=== PATIENT | female | born 2000 | race Caucasian/White ===

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

== ENCOUNTER 2019-01-14 18:58 | Outpatient (CLI) | payer OTHER ==
--- NOTE | 2019-01-22 18:54 | P.MSEPDOC ---
Presenting Problems - Arrival Data Date of Arrival on Unit: 01/14/19 Time of Arrival on Unit: 18:58 Mode of Transport: Ambulatory Disposition - Disposition Discharge Date: 01/14/19 Discharge Time: 20:00 I agree with the RN Medical Screening Exam: No Risk & Benefit of care provided described in d/c instruction: No Diagnosis: None (Insufficient information provided to complete MSE.)
== END 2019-01-14 20:00 | disposition home or self-care (01) ==
LOC: FBPOP 18:58
PROVIDERS: ATTEND Obstetrics & Gynecology
DX: N93.0 Postcoital and contact bleeding (principal); Z3A.37 37 weeks gestation of pregnancy
CPT/HCPCS: 59025; G0463; 99213

== ENCOUNTER 2019-01-25 10:55 | Outpatient (CLI) | payer OTHER ==
[2019-01-25 12:48] VITALS: BP 120/74; PULSE 106; RESP 16; TEMP 93.9
--- NOTE | 2019-01-26 07:42 | P.MSEPDOC ---
Presenting Problems - Arrival Data Date of Arrival on Unit: 01/25/19 Time of Arrival on Unit: 10:56 Mode of Transport: Ambulatory - Complaint OB-Reason for Admission/Chief Complaint: Possible Onset of Labor Comment: cramping and contractions since 7am this morning Medical History - Information : 1 Para: 0 Term: 0 : 0 Abortions: Spontaneous or Elective: 0 Number of Living Children: 0 - Gestational Age Gestational Age by NONI (wks/days): 39 Weeks and 2 Days Review of Systems - Review of Systems Constitutional: No problems Breast: No problems ENT: No problems Cardiovascular: No problems Respiratory: No problems Gastrointestinal: No problems Genitourinary: No problems Musculoskeletal: No problems Neurological: No problems Skin: No problems Vital Signs - Temperature Temperature: 93.9 F - Pulse Pulse Oximetery Pulse Rate: 106 Pulse Assessment Method: Pulse Oximetry - Respirations Respiratory Rate: 16 Oxygen Delivery Method: Room Air - Blood Pressure Right Arm Blood Pressure: 120/74 Blood Pressure Mean: 89 Blood Pressure Source: Automatic Cuff Medical Screen Scoring (Pre) - Cervical Exam Dilation: 1-3 cm = 1 Effacement: More than 50% = 2 Membranes: Intact - Uterine Contractions Frequency: N/A - Maternal Vital Signs Maternal Temperature: N/A Maternal Blood Pressure: N/A Signs of Preeclampsia: N/A Maternal Respirations: N/A - Maternal Trauma Maternal Trauma: N/A - Assessment - Baby A Baseline FHR: 120 Heart Rate - NICHD Category: Category I (Normal) = 0 NST: Reactive - Total Score - Baby A Total Score - Baby A: 3 - Total Score - Baby B Total Score - Baby B: 3 - Total Score - Baby C Total Score - Baby C: 3 - Level of Risk - Baby A Level of Risk - Baby A: Low (0-5) - Level of Risk - Baby B Level of Risk - Baby B: Low (0-5) - Level of Risk - Baby C Level of Risk - Baby C: Low (0-5) Physician Notification (Pre) - Physician Notified Physician Notified Date: 01/25/19 Physician Notified Time: 12:25 Physician/Practitioner Notifed:: joan Spoke With: joan New Order Received: Yes - Notification Comment Comment: reported visit, fht, contractions, no cervical change in one hour, Disposition - Disposition OB Disposition: Discharge to home Discharge Date: 01/25/19 Discharge Time: 12:35 I agree with the RN Medical Screening Exam: Yes Risk & Benefit of care provided described in d/c instruction: Yes Diagnosis: FALSE LABOR AT OR AFTER 37 COMPLETED WEEKS OF GESTATION
== END 2019-01-25 12:35 | disposition home or self-care (01) ==
LOC: FBPOP 10:55
PROVIDERS: ATTEND Obstetrics & Gynecology
DX: O47.1 False labor at or after 37 completed weeks of gestation (principal); Z3A.39 39 weeks gestation of pregnancy
CPT/HCPCS: 59025; 84112; G0463; 99213

== ENCOUNTER 2019-01-25 19:12 | Inpatient (IN) | payer OTHER ==
[2019-01-25] MEDS ORDERED: LIDOCAINE 0.5% (PF) 5 MG/ML (50 ML SDV) SQ PRN (21:02)
[2019-01-25] MEDS ORDERED: CARBOPROST TROMETHAMINE 250 MCG/ML 1 ML AMP IM PRN (21:02)
[2019-01-25] MEDS ORDERED: OXYTOCIN 10 UNIT/ML 1 ML VIAL IM PRN (21:02)
[2019-01-25] MEDS ORDERED: METHYLERGONOVINE 0.2 MG/ML 1 ML AMP IM PRN (21:02)
[2019-01-25] MEDS ORDERED: TERBUTALINE 1 MG/ML VIAL SQ PRN (21:02)
[2019-01-25] MEDS ORDERED: LACTATED RINGERS 1,000 ML IV SCH (21:15)
[2019-01-25 21:22] LABS: Basophils # (A) 0.1 k/uL (0-0.2); Basophils % (A) 0 %; Eosinophils # (A) 0.1 k/uL (0-0.7); Eosinophils % (A) 0 %; HCT 31.5 % (34.0-46.0); HGB 10.6 gm/dL (11.4-16.0); Lymphocytes # (A) 1.2 k/uL (1.0-4.8); Lymphocytes % (A) 7 %; MCH 25.7 pg (25.0-35.0); MCHC 33.5 g/dL (31.0-37.0); MCV 76.5 fL (80.0-100.0); Mean Platelet Volume 8.6; Monocytes # (A) 0.8 k/uL (0-1.0); Monocytes % (A) 5 %; Neutrophils # (A) 14.8 k/uL (1.3-7.7); Neutrophils % (A) 87 %; Platelet Count 241 k/uL (150-450); Poikilocytosis Slight; RBC 4.12 m/uL (3.80-5.40); WBC 17.1 k/uL (4.0-11.0)
[2019-01-25] MEDS: LACTATED RINGERS 1,000 ML IV SCH (21:30)
--- NOTE | 2019-01-25 21:31 | P.HPOB ---
History of Present Illness H&P Date: 01/25/19 Chief Complaint: Contractions This patient is a 19-year-old 1 para 0 female estimated date of confinement 01/30/2019 estimated gestational age 39-2/7 weeks who presented to labor and delivery initially this morning with complaint of contractions is 1 cm dilated returned later this evening is found to be 3 cm dilated and very uncomfortable in early active labor. Patient also had spontaneous rupture membranes here in triage for clear fluid. Patient's care is per Dr. Russo. appears to be uncomplicated. Review of Systems Genitourinary: Reports Menstruation: Reports amenorrhea Past Medical History Past Medical History: No Reported History History of Any Multi-Drug Resistant Organisms: None Reported Past Surgical History: No Surgical Hx Reported Past Anesthesia/Blood Transfusion Reactions: No Reported Reaction Past Psychological History: No Psychological Hx Reported Smoking Status: Never smoker Past Alcohol Use History: None Reported Past Drug Use History: None Reported Medications and Allergies Home Medications Medication Instructions Recorded Confirmed Type No Known Home Medications 01/25/19 01/25/19 History Allergies Allergy/AdvReac Type Severity Reaction Status Date / Time No Known Allergies Allergy Verified 01/25/19 11:01 Exam Vital Signs Temp Pulse Resp BP 01/25/19 19:37 97.4 F L 125 H 18 126/66 Intake and Output 01/25/19 01/25/19 01/25/19 06:59 14:59 22:59 Other: Weight 91.172 kg - OBG Physical Exam Abdomen: bowel sounds normal, no diffuse tenderness, no bruit present, no guarding noted, no hepatomegaly, no splenomegaly, no mass Vulva: both: normal Vagina: normal moisture, no discharge Cervix: no lesion (Cervix is 4-5 cm dilated completely effaced -2 station. Gross rupture membranes for clear fluid), no discharge Results blood work appears normal. Group B strep was negative. Patient had ultrasound done at 33 weeks which showed estimated weight of 5 lbs. 11 oz. which is 81st percentile. Result Diagrams: 01/25/19 20:50 Abnormal Lab Results - Last 24 Hours (Table) 01/25/19 Range/Units 20:50 WBC 17.1 H (4.0-11.0) k/uL Hgb 10.6 L (11.4-16.0) gm/dL Hct 31.5 L (34.0-46.0) % MCV 76.5 L (80.0-100.0) fL Neutrophils # 14.8 H (1.3-7.7) k/uL Assessment and Plan Assessment: This is a 19-year-old 1 para 0 female 20-0/7 weeks gestation with active labor. Plan is anticipate vaginal delivery. (1) 39 weeks gestation of Current Visit: Yes Status: Acute Code(s): Z3A.39 - 39 WEEKS GESTATION OF SNOMED Code(s): 59459046 (2) Normal labor Current Visit: Yes Status: Acute Code(s): O80 - ENCOUNTER FOR FULL-TERM UNCOMPLICATED DELIVERY; Z37.9 - OUTCOME OF DELIVERY, UNSPECIFIED SNOMED Code(s): 69996281
[2019-01-25] MEDS ORDERED: SODIUM CHLORIDE 0.9% 100 ML BAG ONE (21:40)
[2019-01-25] MEDS ORDERED: fentaNYL (PF) 50 MCG/ML 5 ML AMP ONE (21:40)
[2019-01-25] MEDS ORDERED: ROPIVACAINE 5MG/ML 20ML VIAL ONE (21:40)
[2019-01-26 00:08] VITALS: BMI 31.4
[2019-01-26] MEDS: LACTATED RINGERS 1,000 ML IV SCH (00:56)
[2019-01-26] MEDS ORDERED: diphenhydrAMINE 25 MG CAP PO PRN (03:01)
[2019-01-26] MEDS ORDERED: ACETAMINOPHEN TAB 325 MG TAB PO PRN (03:01)
[2019-01-26] MEDS ORDERED: ZOLPIDEM 5 MG TAB PO PRN (03:01)
[2019-01-26] MEDS ORDERED: HYDROCORTISONE 2.5% RECTAL CREAM 30 GM TUBE RECTAL PRN (03:01)
[2019-01-26] MEDS ORDERED: BENZOCAINE/MENTHOL SPRAY 1 GM/SPRAY AEROSOL TOPICAL PRN (03:01)
[2019-01-26] MEDS ORDERED: WITCH HAZEL 1 EACH MED..PAD TOPICAL PRN (03:01)
[2019-01-26] MEDS ORDERED: LANOLIN CREAM 5 GM TUBE TOPICAL PRN (03:01)
[2019-01-26] MEDS ORDERED: diphenhydrAMINE 50 MG/ML 1 ML VIAL IVP PRN (03:01)
[2019-01-26] MEDS ORDERED: BISACODYL 10 MG SUPP RECTAL PRN (03:01)
[2019-01-26] MEDS ORDERED: SIMETHICONE 80 MG CHEWABLE PO PRN (03:01)
[2019-01-26] MEDS ORDERED: AMPICILLIN 2,000 MG in SODIUM CHLORIDE 0.9% 100 ML IVPB STA (03:02)
--- NOTE | 2019-01-26 03:07 | P.PROBDLV ---
Vaginal Delivery Note - . Vaginal Delivery Note: Normal spontaneous vaginal delivery viable female Apgars 8 and 9 delivery time is 0237 hours. Please see dictated H&P for intimate details of this patient's admission. Brief summary this is a pleasant 19-year-old 1 para 0 female 39-3/7 weeks who is admitted to labor and delivery with complaints of regular painful contractions. Patient's cervix is 3 cm dilated and thought to be in active labor after checking her approximately 1 hour later. Patient does also then have spontaneous rupture for clear fluid at 2042 hrs. heart tones are category 1. Labor progresses normally and she does get an epidural for pain control. Patient gets to complete pushes for approximately 30 minutes. She does develop some mild tachycardia to 170s however again heart tones are category 1 and she pushes the head over the intact perineum. Mouth and nares are bulb suctioned. There is no evidence of a nuchal cord. position straight occiput anterior presentation. After delivery of infant's head with gentle downward traction we have delivery the anterior and posterior shoulder and rest this infant's body. The vigorous viable female Apgars are 8 and 9 delivery time is 0237 hours. Infant has spontaneous respirations and good cry and grossly appears normal. Patient does feel warm to me at that time instructed nurse check her temperature to 100.6. This is the first temperature she's had. The infant is late on the mother's abdomen. After the cord is done pulsating is doubly clamped and then cut. The placenta is then spontaneously delivered intact. Due to the temperature I did send this to pathology. Inspection of the perineum shows a second-degree midline laceration which was repaired with 3-0 Vicryl in the usual fashion excellent reapproximation is noted. Estimated blood loss is 100 mL. There are no complications. The patient will be given 1 dose of IV antibiotics and observed due to the temperature and certainly the phthalic acid purifier's be alerted to the baby's temperature as well. All counts are correct 3. There are no complications. and mother stable delivery room.
[2019-01-26] MEDS ORDERED: OXYTOCIN 20 UNITS/1000 ML NS 1,000 ML IV SCH (03:15)
[2019-01-26] MEDS: IBUPROFEN 600 MG TAB PO PRN ×3 (05:36→18:34)
--- NOTE | 2019-01-26 07:19 | P.PN ---
Progress Note - Text Progress Note Date: 01/26/19 Patient is resting without new complaints this morning however continues to have a low-grade temperature. Patient was 100.6 just after delivery and repeat this morning is 100.1. I initially gave her 1 dose of ampicillin however due to the persistence of the temperature I'm going to switch over to some scheduled Ancef. I ordered repeat CBC for tomorrow morning. If the patient were to develop significant temperature elevations or other signs or symptoms of endometritis we would add an aminoglycoside for gram-negative coverage.
--- NOTE | 2019-01-26 07:46 | P.MSEPDOC ---
Presenting Problems - Arrival Data Date of Arrival on Unit: 01/25/19 Time of Arrival on Unit: 20:40 Mode of Transport: Ambulatory - Complaint OB-Reason for Admission/Chief Complaint: Possible Onset of Labor Comment: contraction became longer and stronger after being sent home from triage earlier today Medical History - Information : 3 Para: 2 Term: 2 : 0 Abortions: Spontaneous or Elective: 0 Number of Living Children: 2 - Gestational Age Gestational Age by NONI (wks/days): 39 Weeks and 3 Days Review of Systems - Review of Systems Constitutional: No problems Breast: No problems ENT: No problems Cardiovascular: No problems Respiratory: No problems Gastrointestinal: No problems Genitourinary: No problems Musculoskeletal: No problems Neurological: No problems Skin: No problems Vital Signs - Temperature Temperature: 100.1 F - Pulse Right Pulse Rate: 134 Pulse Assessment Method: Automatic Cuff - Respirations Respiratory Rate: 16 Oxygen Delivery Method: Room Air - Blood Pressure Right Arm Blood Pressure: 112/53 Blood Pressure Mean: 72 Blood Pressure Source: Automatic Cuff Medical Screen Scoring (Pre) - Cervical Exam Dilation: 1-3 cm = 1 Membranes: Intact - Uterine Contractions Duration: > 40 seconds = 2 Intensity: Contraction palpated strong = 1 - Maternal Vital Signs Maternal Temperature: N/A Maternal Blood Pressure: N/A Signs of Preeclampsia: N/A Maternal Respirations: N/A - Assessment - Baby A Baseline FHR: 145 Heart Rate - NICHD Category: Category I (Normal) = 0 NST: Reactive - Total Score - Baby A Total Score - Baby A: 4 - Total Score - Baby B Total Score - Baby B: 4 - Total Score - Baby C Total Score - Baby C: 4 - Level of Risk - Baby A Level of Risk - Baby A: Low (0-5) - Level of Risk - Baby B Level of Risk - Baby B: Low (0-5) - Level of Risk - Baby C Level of Risk - Baby C: Low (0-5) Medical Screen Scoring (Post) - Cervical Exam Dilation: 4-7 cm = 2 Effacement: More than 50% = 2 Membranes: Ruptured = 3 - Uterine Contractions Frequency: > or = 36 weeks =2 Duration: > 40 seconds = 2 Intensity: Contraction palpated strong = 1 - Total Score Total Score - Baby A: 12 Total Score - Baby B: 12 Total Score - Baby C: 12 - Post Treatment Level of Risk Post Treatment Level of Risk - Baby A: High (10+) Post Treatment Level of Risk - Baby B: High (10+) Post Treatment Level of Risk - Baby C: High (10+) Physician Notification (Post) - Physician Notified Physician Notified Date: 01/25/19 Physician Notified Time: 20:38 Spoke With: Adams Morton Order Received: Yes - Notification Comment Comment: admit for labor, ok for epidural Disposition - Disposition OB Disposition: Admit, LDRP Suite I agree with the RN Medical Screening Exam: Yes Risk & Benefit of care provided described in d/c instruction: Yes Diagnosis: ENCOUNTER FOR FULL-TERM UNCOMPLICATED DELIVERY
[2019-01-26] MEDS: SENNOSIDES-DOCUSATE SODIUM 1 EACH TAB PO SCH ×2 (08:01→20:47)
[2019-01-27] MEDS: IBUPROFEN 600 MG TAB PO PRN ×3 (00:01→23:17)
[2019-01-27] MEDS: SENNOSIDES-DOCUSATE SODIUM 1 EACH TAB PO SCH ×2 (08:00→20:49)
--- NOTE | 2019-01-27 08:23 | P.PNOBGVD ---
Subjective - Subjective Principal diagnosis: day 1 Interval history: Keyanna seen and evaluated day 1. She is involuting, voiding and tolerating her diet. She voices no planes. She did have fever late delivered process and baby is in special care nursery pending cultures. Otherwise she is stable. Vital signs are stable and afebrile. Heart regular, lungs clear, extremities without pain. Abdomen is soft uterus is firm and lochia is reported to be light. Assessment day 1. Plan continue current care. Patient reports: Reports appetite normal, Reports voiding normally, Reports pain well controlled, Reports ambulating normally : in NICU Objective - Latest Vital Signs Latest vital signs: Vital Signs Temp Pulse Resp BP 01/27/19 00:00 97.7 F 83 16 98/62 01/26/19 16:00 97.9 F 90 16 94/59 01/26/19 12:00 98.1 F 109 H 16 115/59 Intake and Output 01/26/19 01/27/19 01/27/19 22:59 06:59 14:59 Other: # Voids 1
[2019-01-27 08:31] LABS: Basophils # (A) 0.1 k/uL (0-0.2); Basophils % (A) 0 %; Eosinophils # (A) 0.3 k/uL (0-0.7); Eosinophils % (A) 2 %; HCT 26.8 % (34.0-46.0); Hypochromasia Slight; Lymphocytes # (A) 1.9 k/uL (1.0-4.8); Lymphocytes % (A) 12 %; MCH 25.3 pg (25.0-35.0); MCHC 32.3 g/dL (31.0-37.0); MCV 78.4 fL (80.0-100.0); Mean Platelet Volume 8.7; Monocytes # (A) 0.5 k/uL (0-1.0); Monocytes % (A) 3 %; Neutrophils # (A) 13.1 k/uL (1.3-7.7); Neutrophils % (A) 82 %; Platelet Count 202 k/uL (150-450); Poikilocytosis Slight; RBC 3.42 m/uL (3.80-5.40); RDW 15.1 % (11.5-15.5)
[2019-01-27 08:36] LABS: HGB 8.7 gm/dL (11.4-16.0)
[2019-01-28 00:35] VITALS: RESP 16
[2019-01-28] MEDS: SENNOSIDES-DOCUSATE SODIUM 1 EACH TAB PO SCH (08:40)
--- NOTE | 2019-01-28 09:13 | P.DS ---
Providers Date of admission: 01/25/19 20:53 Expected date of discharge: 01/28/19 Attending physician: Rosendo Russo Primary care physician: Rosendo Russo [facility] Course: Keyanna is doing very well this morning. She is involuting, voiding and tolerating her diet. She voices no complaints. Vital signs are stable and afebrile. Heart regular, lungs clear, extremities without pain. Abdomen soft uterus firm below the umbilicus and lochia is reported light. We'll plan discharged home today. Prescription for breast pump and Motrin provided. Discharge instructions were thoroughly reviewed and all questions are answered for her. She'll follow up with me in 6 weeks. She is stable for discharge this time. Patient Condition at Discharge: Good Plan - Discharge Summary New Discharge Prescriptions: New Ibuprofen [Motrin] 600 mg PO Q6HR PRN #30 tab PRN Reason: Pain Discharge Medication List Ibuprofen [Motrin] 600 mg PO Q6HR PRN #30 tab 01/28/19 [Rx] Follow up Appointment(s)/Referral(s): Rosendo Russo DO [Primary Care Provider] - 6 Weeks Activity/Diet/Wound Care/Special Instructions: No heavy lifting, limit stairs and driving, and pelvic rest. If any high temperatures, heavy bleeding, or severe pain call my office Discharge Disposition: HOME SELF-CARE
[2019-01-28 16:01] VITALS: BP 105/61; PULSE 87; TEMP 98.1
--- NOTE | 2019-01-31 06:53 | CDI ---
Documentation Clarification Form Date: 01/31/19 From: Gin Moss Phone: If questions call Ping Juárez @ [phone], Hours-8:30 am & 5 pm M- David Admit Date: 01/25/2019 8:53:00 PM Patient Name: Keyanna Marc Visit Number: [id number] Discharge Date: 01/28/2019 6:32:00 PM ATTENTION: The Clinical Documentation Specialists (CDI) and [facility] Coding Staff appreciate your assistance in clarifying documentation. Please respond to the clarification below the line at the bottom and electronically sign. The CDI & [facility] Coding staff will review the response and follow-up if needed. Please note: Queries are made part of the Legal Health Record. If you have any questions, please contact the author of this message via ITS. Dr. Wander Lamas The final diagnosis of the pathology report states: Mild to moderate chorionitis with focal chorioamnionitis Documentation states: temperature Patient history/risk factors: 19 yr old first at 39 weeks Clinical Indicators: temperature during delivery & following delivery 100.6/100.1 Treatment: IV Ampicillin switched to IV Kefzol In your professional opinion, do you agree with the pathology report specifying mild to moderate chorionitis with focal chorioamnionitis ? Yes No Other (please specify) Unable to determine YES MTDD
== END 2019-01-28 18:32 | disposition home or self-care (01) | DRG 805 ==
LOC: FBPOP 19:12 → 4FBP 20:53
PROVIDERS: ADMIT Obstetrics & Gynecology; ATTEND Obstetrics & Gynecology
PROC: 00HU33Z Insertion of Infusion Device into Spinal Canal, Percutaneous Approach (ICD-10-PCS; 2019-01-25)
PROC: 3E0R3BZ Introduction of Anesthetic Agent into Spinal Canal, Percutaneous Approach (ICD-10-PCS; 2019-01-25)
PROC: 10E0XZZ Delivery of Products of Conception, External Approach (ICD-10-PCS; principal; 2019-01-26)
PROC: 0KQM0ZZ Repair Perineum Muscle, Open Approach (ICD-10-PCS; 2019-01-26)
DX: O76 Abnormality in fetal heart rate and rhythm complicating labor and delivery (principal); O41.1230 Chorioamnionitis, third trimester, not applicable or unspecified; Z37.0 Single live birth; O86.4 Pyrexia of unknown origin following delivery; O70.1 Second degree perineal laceration during delivery; Z3A.39 39 weeks gestation of pregnancy
CPT/HCPCS: 59025; 85025; 86850; 86900; 86901; 88307; 99215

== ENCOUNTER 2023-06-25 11:20 | Outpatient (CLI) | payer OTHER ==
[2023-06-25] MEDS: LACTATED RINGERS 1,000 ML IV SCH (12:18)
[2023-06-25 12:28] LABS: Basophils % (A) 0 %; Eosinophils # (A) 0.2 k/uL (0-0.7); Eosinophils % (A) 2 %; HCT 35.2 % (34.0-46.0); HGB 11.7 gm/dL (11.4-16.0); Lymphocytes # (A) 1.6 k/uL (1.0-4.8); Lymphocytes % (A) 18 %; MCH 27.5 pg (25.0-35.0); MCHC 33.2 g/dL (31.0-37.0); MCV 82.7 fL (80.0-100.0); Monocytes # (A) 0.3 k/uL (0-1.0); Monocytes % (A) 4 %; Neutrophils % (A) 75 %; Platelet Count 216 k/uL (150-450); RBC 4.26 m/uL (3.80-5.40); RDW 13.6 % (11.5-15.5); WBC 9.4 k/uL (3.8-10.6)
[2023-06-25 12:31] LABS: Appearance,Urine Clear (Clear); Bacteria,Urine Rare /hpf; Bilirubin,Urine Negative (Negative); Blood,Urine Negative (Negative); Color,Urine Light Yellow; Glucose,Urine (UA) Negative (Negative); Ketones,Urine Negative (Negative); Leukocyte Esterase,Urine Moderate (Negative); Mucus,Urine Occasional /hpf; Nitrite,Urine Negative (Negative); PH, Urine 5.5 (5.0-8.0); Protein,Urine Negative (Negative); RBC,Urine 1 /hpf (0-5); Specific Gravity,Urine 1.016 (1.001-1.035); Squamous Epithelial Cell,Urine 3 /hpf (0-4); Urobilinogen,Urine <2.0 mg/dL (<2.0); WBC,Urine 3 /hpf (0-5)
[2023-06-25 12:41] LABS: African American GFR (CKD) >90 (>60 ml/min/1.73 sqM); Anion Gap 6 mmol/L; Blood Urea Nitrogen 4 mg/dL (7-17); Carbon Dioxide 19 mmol/L (22-30); Chloride 112 mmol/L (98-107); Glucose 77 mg/dL (74-99); Non-African American GFR(CKD) >90 (>60 ml/min/1.73 sqM); Potassium 4.4 mmol/L (3.5-5.1); Sodium 137 mmol/L (137-145)
[2023-06-25] MEDS: ONDANSETRON 4 MG/2 ML VIAL IM STA (12:42)
[2023-06-25 14:34] VITALS: BP 113/77; PULSE 98; RESP 16; TEMP 97.3
--- NOTE | 2023-06-27 17:35 | P.MSEPDOC ---
Presenting Problems - Arrival Data Date of Arrival on Unit: 06/25/23 Time of Arrival on Unit: 11:20 Mode of Transport: Ambulatory - Complaint OB-Reason for Admission/Chief Complaint: Possible Onset of Labor Comment: Patient of Dr Lamas, 39 2/7 weeks, presents to triage with complaints of diarrhea since midnight, vomiting x2 this morning at 0600. Patient states she feels cramping in her abdomin this morning sicne she has had diarrhea. Patient denies bleeding or loss of fluid. Medical History - Information : 2 Para: 1 Term: 1 : 0 Abortions: Spontaneous or Elective: 0 Number of Living Children: 1 - Gestational Age Gestational Age by NONI (wks/days): 39 Weeks and 2 Days Review of Systems - Review of Systems Constitutional: No problems Breast: No problems ENT: No problems Cardiovascular: No problems Respiratory: No problems Gastrointestinal: Diarrhea Genitourinary: No problems Musculoskeletal: No problems Neurological: No problems Skin: No problems Vital Signs - Temperature Temperature: 97.3 F Temperature Source: Axillary - Pulse Pulse Oximetery Pulse Rate: 98 Pulse Assessment Method: Automatic Cuff - Respirations Respiratory Rate: 16 Oxygen Delivery Method: Room Air O2 Sat by Pulse Oximetry: 99 - Blood Pressure Right Arm Blood Pressure: 113/77 Blood Pressure Mean: 89 Blood Pressure Source: Automatic Cuff Medical Screen Scoring - Cervical Exam Dilation (cm): 0 Station: -3 Membranes: Intact - Uterine Contractions Frequency From (mins): 1 Frequency To (mins): 7 Duration From (seconds): 70 Duration To (seconds): 110 Intensity: Mild Resting: Soft to palpation - Assessment - Baby A Baseline FHR: 130 Heart Rate - NICHD Category: Category I (Normal) NST: Reactive Physician Notification - Physician Notified Physician Notified Date: 06/25/23 Physician Notified Time: 11:47 Physician: Dr Farias New Order Received: Yes - Notification Comment Comment: Report of patient present, c/o diarrhea since midnight, vomiting x2 since 0600, patient states she is "just uncomfortable. Reviewed SVE, cat1 heartrate and irregular comtractions. Orders received for IV of LR, CBC, BMP, UA, covid and flu screen, zofran 4mg one time now IV. Maternal Triage Index - Maternal Triage Index Presenting for scheduled procedure w/no complaint: No - Stat/Priority 1 Stat Priority 1: No - Urgent/Priority 2 Urgent Priority 2: No - Prompt/Priority 3 Prompt Priority 3: No - Non-Urgent/Priority 4 Non-Urgent Priority 4: Yes Criteria Met for Priority 4: Report of patient present, c/o diarrhea since midnight, vomiting x2 since 0600, patient states she is "just uncomfortable"; mild contractions 1-7 minutes, Category 1 heartrate Disposition - Disposition OB Disposition: Discharge to home Discharge Date: 06/25/23 Discharge Time: 13:46 I agree with the RN Medical Screening Exam: Yes Case reviewed; plan agreed upon as documented in EMR&OBIX.: Yes Diagnosis: VOMITING, UNSPECIFIED
== END 2023-06-25 13:46 | disposition home or self-care (01) ==
LOC: FBPOP 11:20
PROVIDERS: ATTEND Obstetrics & Gynecology
DX: O21.9 Vomiting of pregnancy, unspecified (principal); O47.1 False labor at or after 37 completed weeks of gestation; O26.893 Other specified pregnancy related conditions, third trimester; R10.9 Unspecified abdominal pain; R19.7 Diarrhea, unspecified; Z3A.39 39 weeks gestation of pregnancy
CPT/HCPCS: 59025; 96361; 96374; 36415; 80048; 85025; 81001; 87636; G0463; J2405; 96360; 96367; 96375; 99213; 99214

== ENCOUNTER 2023-06-28 05:53 | Inpatient (IN) | payer OTHER ==
[2023-06-27 10:10] VITALS: BMI 34.0
--- NOTE | 2023-06-27 12:49 | P.HPOB ---
History of Present Illness H&P Date: 06/27/23 Chief Complaint: macrosomia This patient is a pleasant 23-year-old 2 para 1 female estimated date of confinement 06/30/2023 estimated gestational age 39-4/7 weeks who presents to labor and delivery for elective primary section secondary to suspected macrosomia. Patient's care has been uncomplicated with the exception of macrosomia. Patient was in triage approximately 3 days ago with dehydration which responded to IV hydration. Patient had an ultrasound about 2 weeks ago that showed estimated weight at approximately 9 pounds. I discussed options with the patient for delivery including all right section due to concern for shoulder dystocia or traumatic delivery and she has agreed to proceed. otherwise has been uncomplicated. Review of Systems Genitourinary: Reports Menstruation: Reports amenorrhea Past Medical History Past Medical History: No Reported History Additional Past Medical History / Comment(s): Previous term vaginal delivery History of Any Multi-Drug Resistant Organisms: None Reported Past Surgical History: No Surgical Hx Reported Past Anesthesia/Blood Transfusion Reactions: No Reported Reaction Past Psychological History: Depression Smoking Status: Former smoker Past Alcohol Use History: None Reported Past Drug Use History: None Reported - Past Family History Father Family Medical History: No Reported History Medications and Allergies Home Medications Medication Instructions Recorded Confirmed Type Vit No.179/Iron/Folic 1 tab PO DAILY 06/25/23 06/27/23 History [ Tablet] Acetaminophen [Tylenol Extra 500 mg PO Q6H PRN 06/27/23 06/27/23 History Strength] Allergies Allergy/AdvReac Type Severity Reaction Status Date / Time No Known Allergies Allergy Verified 06/27/23 09:56 Exam Intake and Output 06/26/23 06/27/23 06/27/23 22:59 06:59 14:59 Other: Weight 104.326 kg - OBG Physical Exam Abdomen: bowel sounds normal, no diffuse tenderness, no bruit present, no guarding noted, no hepatomegaly, no splenomegaly, no mass Vulva: both: normal Vagina: normal moisture, no discharge Cervix: no lesion, no discharge Uterus: enlarged (Fundal height 43 cm) Results blood work shows she is A positive, rubella immune, RPR is nonreactive, hepatitis B and C negative, HIV is nonreactive, Glucola was normal, group B strep was negative, ultrasounds as above. Assessment and Plan Assessment: This is a pleasant 23-year-old 2 para 1 female 39-4/7 weeks gestation who presents for primary section secondary to suspected macrosomia. The patient and I have discussed the estimated weight and criteria for delivery and we discussed options for delivery including trial of vaginal delivery versus section. Due to the high variance in the ultrasound I recommended she proceed with section for delivery at this time. She understands the estimated weight could be higher or lower than has been reported. She understands the risk of the surgery including risks of infection, bleeding, possible injury to bowel, bladder, vessels, and other organs. All the patient's questions are answered and a written consent is obtained. (1) macrosomia Status: Acute Code(s): OKA5086 - SNOMED Code(s): 76281399 (2) 39 weeks gestation of Status: Acute Code(s): Z3A.39 - 39 WEEKS GESTATION OF SNOMED Code(s): 52226037
[2023-06-28] MEDS ORDERED: miSOPROStoL 200 MCG TAB PO PRN (06:01)
[2023-06-28] MEDS ORDERED: METHYLERGONOVINE 0.2 MG/ML 1 ML AMP IM PRN (06:01)
[2023-06-28] MEDS ORDERED: TRANEXAMIC 1,000 MG/100ML-NACL 1,000 MG in EMPTY BAG 1 BAG IV PRN (06:01)
[2023-06-28] MEDS ORDERED: CARBOPROST TROMETHAMINE 250 MCG/ML 1 ML AMP IM PRN (06:01)
[2023-06-28] MEDS ORDERED: OXYTOCIN 10 UNIT/ML 1 ML VIAL IM PRN (06:01)
[2023-06-28 06:21] LABS: Basophils % (A) 0 %; Eosinophils # (A) 0.3 k/uL (0-0.7); Eosinophils % (A) 3 %; HCT 30.2 % (34.0-46.0); HGB 10.7 gm/dL (11.4-16.0); Lymphocytes # (A) 2.1 k/uL (1.0-4.8); Lymphocytes % (A) 27 %; MCH 28.4 pg (25.0-35.0); MCHC 35.3 g/dL (31.0-37.0); MCV 80.5 fL (80.0-100.0); Mean Platelet Volume 8.9; Monocytes # (A) 0.4 k/uL (0-1.0); Monocytes % (A) 6 %; Neutrophils # (A) 4.8 k/uL (1.3-7.7); Neutrophils % (A) 61 %; Platelet Count 184 k/uL (150-450); Poikilocytosis Slight; RBC 3.76 m/uL (3.80-5.40); RDW 13.6 % (11.5-15.5); WBC 7.8 k/uL (3.8-10.6)
[2023-06-28] MEDS: LACTATED RINGERS 1,000 ML IV SCH ×2 (06:28→09:02)
[2023-06-28] MEDS: CITRIC ACID-SODIUM CITRATE 15 ML CUP PO ONE (07:22)
[2023-06-28] MEDS: LACTATED RINGERS 1,000 ML IV ONE (07:23)
[2023-06-28] MEDS ORDERED: ONDANSETRON 4 MG/2 ML VIAL ONE (07:46)
[2023-06-28] MEDS ORDERED: OXYTOCIN 30 UNITS/500 ML NS BAG IV ONE (07:46)
[2023-06-28] MEDS ORDERED: KETOROLAC 30 MG/ML 1 ML VIAL ONE (07:46)
[2023-06-28] MEDS ORDERED: PHENYLEPHRINE-0.9% NACL SYG 1,000 MCG/10 ML SYRINGE ONE (07:46)
[2023-06-28] MEDS ORDERED: MORPHINE SULFATE (PF) 0.3 MG/0.3 ML SYR ONE (07:46)
[2023-06-28] MEDS ORDERED: diphenhydrAMINE 50 MG/ML 1 ML VIAL IVP PRN ×2 (08:28→08:36)
[2023-06-28] MEDS ORDERED: ONDANSETRON 4 MG/2 ML VIAL IVP PRN ×2 (08:28→08:36)
[2023-06-28] MEDS ORDERED: NALOXONE 0.4 MG/ML 1 ML VIAL IV PRN ×2 (08:28→08:36)
--- NOTE | 2023-06-28 08:35 | P.OP ---
Date of Procedure: 06/28/23 Preoperative Diagnosis: #1: 39-5/7 week intrauterine . #2: Suspected macrosomia and desires . Postoperative Diagnosis: Same Procedure(s) Performed: Primary low transverse section Anesthesia: spinal Surgeon: Wander Lamas Oncology Coordinator #1: Jemima Wagner Estimated Blood Loss (ml): 600 Pathology: none sent Condition: stable Disposition: floor Indications for Procedure: Please see dictated H&P for intimate details of this patient's admission. Brief summary this is a pleasant 23-year-old 2 para 1 female 39-5/7 weeks gestation admitted to labor and delivery for elective primary section due to suspected macrosomia. Patient understands this surgery and risks and risks of infection, bleeding, possible injury bowel, bladder, vessels, other organs. All the patient's questions are answered and a written consent is obtained. Operative Findings: This is a vigorous viable female infant Apgars are 9 and 9 delivery time is 0805 hrs. weighed 4050 g. Description of Procedure: This patient has a Cornelius catheter placed to straight drain. She subsequent taken to the operating room where she sat up and spinal anesthetic is administered without incident. With an adequate level of anesthesia she has abdominal prep and drape. Scalpels and taken Pfannenstiel skin incision is then made. A second scalpel is taken down the fascia the fascia scored with a knife. Fascial incision extended bilaterally using the Alcaraz scissors. Fascia is then dissected off the rectus muscles sharply. Rectus muscles are the peritoneum was identified and entered sharply. Peritoneal incision extended superior and inferior without difficulty. Bladder blade is then placed. Bladder peritoneum was taken sharply off the lower uterine segment. Scalpels then taken low transverse uterine incision is then made. Using a hemostat, I bluntly entered the uterine cavity and there is loss of clear fluid. The uterine incision is then extended bluntly. Infant's head is then guided through the incision with fundal pressure delivered easily. Mouth and nares are bulb suctioned. There is no evidence of nuchal cord. With more fundal pressure with deliver the anterior and posterior shoulder and rest this 's body. This is a vigorous viable female infant Apgars are 9 and 9. Infant grossly appears normal. After delivery of the infant the umbilical cord is doubly clamped and cut appears to be trivascular. The placenta is then manually extracted intact. The uterus is then externalized and the uterine incision demarcated with Chaves clamps. Uterine incision is then closed using 0 Vicryl running fashion. 2 layers. Bladder peritoneum was then reapproximated using a 3-0 Vicryl. Excess fluid is removed from the abdomen and pelvis. Uterus placed back into the abdomen. The uterus, tubes, ovaries appear normal for term gestation. With this done the parietal peritoneum was then identified and closed using 0 Vicryl running fashion. Rectus muscles reapproximated in 0 Vicryl interrupted fashion. Fascial incision is then closed using 0 PDS. Fascial incision is intact and hemostatic. Subcutaneous tissues and closed using a 3-0 Vicryl. Skin is and closed using chula. All counts are correct 3. No complications. Infant and mother are taken the birthing suite in satisfactory condition.
[2023-06-28] MEDS ORDERED: ZOLPIDEM 5 MG TAB PO PRN (08:36)
[2023-06-28] MEDS ORDERED: METOCLOPRAMIDE 5 MG/ML 2 ML VIAL IVP PRN (08:36)
[2023-06-28] MEDS ORDERED: LANOLIN CREAM 5 GM TUBE TOPICAL PRN (08:36)
[2023-06-28] MEDS ORDERED: diphenhydrAMINE 25 MG CAP PO PRN (08:36)
[2023-06-28] MEDS: SENNOSIDES-DOCUSATE SODIUM 1 EACH TAB PO SCH (09:02)
[2023-06-28] MEDS: NALBUPHINE 10 MG/ML (10 ML MDV) IM ONE (09:28)
[2023-06-28] MEDS: ACETAMINOPHEN TAB 500 MG TAB PO SCH ×2 (09:53→10:42)
[2023-06-28] MEDS: OXYTOCIN 30 UNITS/500 ML NS 30 UNIT in SALINE 1 500ML.BAG IV SCH (10:41)
[2023-06-28] MEDS ORDERED: IBUPROFEN 600 MG TAB PO SCH (12:30)
[2023-06-28] MEDS: IBUPROFEN 600 MG TAB PO SCH (15:23)
[2023-06-28] MEDS: KETOROLAC 15 MG/ML 1 ML VIAL IVP SCH (18:09)
--- NOTE | 2023-06-29 06:48 | P.PNOBGPC ---
Subjective - Subjective Patient reports: Reports appetite normal, Reports voiding normally, Reports pain well controlled, Reports ambulating normally : doing well Objective - Vital Signs Latest vital signs: Vital Signs Temp Pulse Resp BP BP Pulse Ox 06/29/23 00:00 98.1 F 81 18 120/75 98 06/28/23 17:00 18 06/28/23 16:00 98.2 F 78 16 112/64 98 06/28/23 15:00 82 18 98 06/28/23 14:23 98.1 F 82 16 110/62 06/28/23 12:39 16 06/28/23 12:00 97.6 F 74 16 101/66 99 06/28/23 11:23 16 98 06/28/23 10:29 81 16 112/78 99 06/28/23 10:14 95.8 F L 71 16 103/56 99 06/28/23 09:58 74 18 112/76 100 06/28/23 09:44 70 16 111/71 98 06/28/23 09:29 89 16 109/68 98 06/28/23 09:28 76 16 100 06/28/23 09:14 79 16 116/65 100 06/28/23 08:59 83 16 94/50 98 06/28/23 08:44 81 16 93/51 100 06/28/23 08:29 96.7 F L 87 16 105/57 06/28/23 08:28 96.7 F L 82 16 105/57 98 Intake and Output 06/28/23 06/28/23 06/29/23 14:59 22:59 06:59 Output Total 638 1300 300 Balance -638 -1300 -300 Output: Urine 200 1300 300 Uretheral (Cornelius) 200 Output, Quantitative 438 Blood Loss Other: Voiding Method Indwelling Catheter - Exam Lungs: bilateral: normal Chest: Normal S1, Normal S2 Extremities: Present: normal Abdomen: Present: normal appearance, soft. Absent: distention, tenderness Incision: Present: normal, dry, intact Uterus: Present: normal, firm Assessment and Plan Assessment: Postoperative day #1. Patient is resting without new complaints. Vital signs are stable she's afebrile. Uterus is firm nontender her incision is intact and dry. She was 1 area of ecchymosis just beneath the incision, but this is small. Patient's urinating without difficulty and tolerating regular diet. CBC is pending at time of this dictation. My impression this is a normal postoperative course. Plan is to check a CBC, allow the patient to shower, and most likely will discharge home tomorrow. (1) macrosomia Current Visit: No Status: Acute Code(s): NCH7242 - SNOMED Code(s): 50314098 (2) 39 weeks gestation of Current Visit: No Status: Acute Code(s): Z3A.39 - 39 WEEKS GESTATION OF SNOMED Code(s): 83414975
--- NOTE | 2023-06-29 07:12 | P.PN ---
Progress Note - Text Progress Note Date: 06/29/23 Postop day 1 from under spinal anesthesia with intrathecal morphine given for postop pain management. Patient is doing well. Pain is well controlled. On visual analog scale 2/10 Mild itching present No nausea or vomiting reported. No Headache or weakness and numbness in the legs. No complications from spinal anesthesia.
[2023-06-29 08:05] LABS: Basophils % (A) 0 %; Eosinophils # (A) 0.2 k/uL (0-0.7); Eosinophils % (A) 3 %; HCT 31.3 % (34.0-46.0); HGB 10.4 gm/dL (11.4-16.0); Hypochromasia Slight; Lymphocytes # (A) 1.7 k/uL (1.0-4.8); Lymphocytes % (A) 20 %; MCH 28.1 pg (25.0-35.0); MCHC 33.3 g/dL (31.0-37.0); MCV 84.3 fL (80.0-100.0); Mean Platelet Volume 9.3; Monocytes # (A) 0.6 k/uL (0-1.0); Monocytes % (A) 7 %; Neutrophils % (A) 69 %; Platelet Count 172 k/uL (150-450); RBC 3.72 m/uL (3.80-5.40); RDW 13.8 % (11.5-15.5); WBC 8.7 k/uL (3.8-10.6)
[2023-06-29] MEDS: SIMETHICONE 80 MG CHEWABLE PO PRN (19:55)
[2023-06-30 08:32] VITALS: BP 118/72; PULSE 95; RESP 16; TEMP 97.7
--- NOTE | 2023-06-30 10:00 | P.DS ---
Providers Date of admission: 06/28/23 05:53 Expected date of discharge: 06/30/23 Attending physician: Wander Lamas Primary care physician: Stated None Hospital Course: This is a 23-year-old female 2 para 1 at 39-5/7 weeks who underwent a primary low transverse section on 06/28/2023 and delivered a viable female with scores of 9 at 1 minute and 9 at 5 minutes and weight of 8 lbs. 15 oz. Please see history and physical and operative report for details of patient's admission. She has done well since her surgery. She is ambulating and passing flatus. She is passing bowel movement. She is urin ating without difficulty. Her pain is fairly well controlled with ibuprofen and Tylenol. Vital signs are stable. Abdomen is soft with positive bowel sounds 4. Incision is clean dry and intact with chula in place. Extremities show negative Homans. Impression is status post primary low transverse section postoperative day #2. Plan is to discharge home today. Routine postoperative and instructions are given. Prescriptions have already been sent in by Dr. Lamas. She is advised to follow up in the office with Dr. Lamas in approximately 1 week for a postoperative check and in 6 weeks for check. She is advised to call the office if she has any further questions or concerns prior to her appointment time. [place] will be removed and Steri-Strips placed prior to discharge. Procedures: Primary low transverse section on 06/28/2023 Patient Condition at Discharge: Stable Plan - Discharge Summary Discharge Rx Participant: Yes New Discharge Prescriptions: New oxyCODONE HCL [OxyIR] 5 mg PO Q4HR PRN #18 tab PRN Reason: Pain Scale 4 - 6 Ibuprofen [Motrin] 600 mg PO Q6H #40 tab No Action Vit No.179/Iron/Folic [ Tablet] 1 tab PO DAILY Acetaminophen [Tylenol Extra Strength] 500 mg PO Q6H PRN PRN Reason: Pain Discharge Medication List Vit No.179/Iron/Folic [ Tablet] 1 tab PO DAILY 06/25/23 [History] Acetaminophen [Tylenol Extra Strength] 500 mg PO Q6H PRN 06/27/23 [History] Ibuprofen [Motrin] 600 mg PO Q6H #40 tab 06/29/23 [Rx] oxyCODONE HCL [OxyIR] 5 mg PO Q4HR PRN #18 tab 06/29/23 [Rx] Follow up Appointment(s)/Referral(s): Wander Lamas MD [STAFF PHYSICIAN] - 08/02/23 9:30 am (Post Op Appointment 07-09-23 at 1:30) Patient Instructions/Handouts: (DC) Activity/Diet/Wound Care/Special Instructions: No heavy lifting or strenuous activity for 6 weeks. Please call if any fever, chills, excessive vaginal bleeding, and/or abdominal pain. Discharge Disposition: HOME SELF-CARE
== END 2023-06-30 11:44 | disposition home or self-care (01) | DRG 540 ==
LOC: 4FBP 05:53
PROVIDERS: ADMIT Obstetrics & Gynecology; ATTEND Obstetrics & Gynecology
PROC: 10D00Z1 Extraction of Products of Conception, Low, Open Approach (ICD-10-PCS; principal; 2023-06-28 08:00)
DX: O36.63X0 Maternal care for excessive fetal growth, third trimester, not applicable or unspecified (principal); O99.284 Endocrine, nutritional and metabolic diseases complicating childbirth; E86.0 Dehydration; F32.A Depression, unspecified; O99.344 Other mental disorders complicating childbirth; Z37.0 Single live birth; Z3A.39 39 weeks gestation of pregnancy; Z87.891 Personal history of nicotine dependence; Z28.311 Partially vaccinated for COVID-19
CPT/HCPCS: 85025; 86850; 86900; 86901